=== PATIENT | male | born 1945 | race Caucasian/White ===

== ENCOUNTER 2018-03-07 00:23 | Emergency (ER) | payer MEDICARE, OTHER, SELFPAY ==
[2018-03-07 00:44] VITALS: BP 128/97; PULSE 96; RESP 17; TEMP 36.8; O2SAT 94
[2018-03-07] MEDS: ASPIRIN 81 MG TAB 324 MG PO (00:44)
--- NOTE | 2018-03-07 00:44 | DI.RAD.S_ITS ---
PROCEDURE: XR CHEST 1V INDICATIONS: chest pain, shortness of breath TECHNIQUE: One view of the chest was acquired. COMPARISON: [facility], CT, PE STUDY (CTA CHEST), 09/29/2015, 15:46. [facility], CR, CHEST 2 VIEW, 01/02/2017, 15:01. FINDINGS: Surgical changes and devices: Pulse generator projects over left hemithorax as before. Lungs and pleura: No pleural effusions or pneumothorax. Low lung volumes without acute consolidation. There are ill-defined subcentimeter nodular opacities projecting in the right lung base which are technically indeterminate although continued followup. Mediastinum: Mediastinal contours appear normal. Heart size is normal. Bones and chest wall: No suspicious bony lesions. Overlying soft tissues appear unremarkable. IMPRESSION: No acute consolidation. Ill-defined subcentimeter nodular opacities projecting in the right lung base which could represent early bronchopneumonia although cannot exclude pulmonary nodule. These appear new since 01/02/17. Recommend short interval one month radiographic followup after treatment and if persists noncontrast chest CT would be recommended to exclude pulmonary nodule. Dictated by: Hi Hdez M.D. on 03/07/2018 at 8:06 Approved by: Hi Hdez M.D. on 03/07/2018 at 8:09
[2018-03-07] MEDS: SODIUM CHLORIDE 0.9% 1,000 ML 150 ML IV (00:45)
--- NOTE | 2018-03-07 00:49 | ED.CHESTPAIN ---
HPI - Chest Pain General Chief Complaint: Chest Pain Stated Complaint: chest pain Time Seen by Provider: 03/07/18 00:30 Source: patient and family Mode of arrival: wheelchair Limitations: no limitations History of Present Illness HPI narrative: Patient presents to the emergency department in the company family with a chief complaint of chest pain and shortness of breath over the past few days. Shortness of breath is worse when lying flat and while exerting. Patient has had no fever or chills. He denies dizziness or lightheadedness. He denies any weight gain. He denies any cough. Patient denies provocation, palliation or radiation his chest pain. He is not currently having pain MD complaint: chest pain Onset (ago): day(s) Duration: intermittent and now resolved Pain location: left chest Severity: mild Pain radiation: none Relieving factors: nothing Exacerbating factors: nothing Associated symptoms: nausea and dyspnea Treatments prior to arrival chest pain: none Related Data Home Medications Medication Instructions Recorded Confirmed amitriptyline 75 - 150 mg PO HS #0 07/19/12 pregabalin [Lyrica] 150 mg PO TID #0 07/19/12 fentanyl 1 patch TOPICAL Q72H #0 08/28/16 folic acid 0.4 mg PO QDAY #0 08/28/16 glycopyrrolate 0.5 mg PO BID #0 08/28/16 [CALCIUM] 1 tab PO QDAY #0 10/24/17 carbidopa-levodopa [Rytary] 2 cap PO BID #0 10/24/17 carbidopa-levodopa [Rytary] 3 cap PO BID #0 10/24/17 cholecalciferol (vitamin D3) 2,000 unit PO QDAY #0 10/24/17 [Vitamin D3] furosemide 20 mg PO QDAY #0 10/24/17 lubiprostone [Amitiza] 8 mcg PO BID #0 10/24/17 naloxegol [Movantik] 12.5 mg PO QDAY #0 10/24/17 nystatin 1 mis TOPICAL BID #0 10/24/17 potassium chloride 20 meq PO QDAY #0 10/24/17 venlafaxine 2 tab PO QDAY #0 10/24/17 Previous Rx's Medication Instructions Recorded furosemide [Lasix] 40 mg PO DAILY #3 tab 03/07/18 Allergies Allergy/AdvReac Type Severity Reaction Status Date / Time adhesive [ADHESIVE] Allergy Severe BLISTERS Verified 03/07/18 00:44 chlorhexidine [CHLORHEXIDINE] Allergy Severe RASH Verified 03/07/18 00:44 latex [LATEX] Allergy Severe BLISTERS Verified 03/07/18 00:44 rubber Allergy Mild SKIN RED Uncoded 12/04/17 13:06 vinyl Allergy Unknown PT DENIES Uncoded 12/04/17 13:06 antiseptic soap AdvReac Mild SKIN RED Uncoded 12/04/17 13:06 AND IRRITATED Review of Systems Review of Systems All systems reviewed & are unremarkable except as noted in HPI and below Constitutional Denies chills, Denies fever(s), Denies lethargy and Denies weakness Eyes Denies change in vision, Denies eye discharge, Denies irritation and Denies loss of vision ENT Ears, Nose, Mouth, and Throat: Denies change in voice, Denies neck pain and Denies sore throat Cardiovascular Reports chest pain, Denies irregular heart rhythm, Denies lightheadedness, Denies palpitations, Reports dyspnea, Reports dyspnea on exertion and Reports orthopnea Respiratory Denies cough, Reports dyspnea, Reports dyspnea on exertion and Denies wheezing Gastrointestinal Gastrointestinal: Denies abdominal pain, Denies change in bowel habits, Denies diarrhea, Denies nausea and Denies vomiting Genitourinary Denies hematuria, Denies flank pain, Denies urinary incontinence and Denies urinary urgency Musculoskeletal Denies neck pain Integumentary/Breasts Denies pruritus, Denies erythema, Denies rash and Denies wounds Neurologic Denies confusion, Denies loss of vision and Denies weakness Psychiatric Denies anxiety, Denies confusion, Denies depression, Denies homicidal ideation and Denies suicidal ideation Endocrine Denies palpitations Hematologic/Lymphatic Denies easy bruising Allergic/Immunologic Denies wheezing Exam Narrative Exam Narrative: 72-year-old male in mild distress, short of breath Initial Vital Signs Initial Vital Signs: Vital Signs Temperature 98.2 F 03/07/18 00:44 Pulse Rate 96 H 03/07/18 00:44 Respiratory Rate 17 03/07/18 00:44 Blood Pressure 128/97 H 03/07/18 00:44 Pulse Oximetry 94 03/07/18 00:44 Const General: cooperative and well developed Nutritional Appearance: well nourished Orientation: alert, awake, oriented x3 and not confused [place] Head: normocephalic and atraumatic Ears: external ears normal and TM's normal bilaterally Nose: external nose normal and No nasal discharge Face and sinus: sinuses nontender, face symmetric, no sinus tenderness and No dry mucous membranes Mouth: oral mucosae normal and moist mucous membranes Teeth and gingiva: dentition normal Throat: tonsils normal and uvula midline Eyes General: appearance normal, both eyes and all related structures Eyelids: eyelids normal Conjunctivae: conjunctivae normal Sclera: sclerae normal Pupils: PERRL EOM: EOM intact bilaterally Neck Neck: normal visual inspection, trachea midline, No lymphadenopathy, No midline deformity and No JVD Lymphatic: No lymphedema Chest Chest: normal inspection of the chest Resp Effort & Inspection: normal respiratory effort, able to speak in complete sentences, no respiratory distress and no use of accessory muscles Auscultation: clear to auscultation bilaterally, crackles, rales, no rhonchi and no wheezes Cardio Rate: regular rate Rhythm: regular rhythm Heart Sounds: no click, no gallops, no murmurs and no rubs Pulses: normal peripheral pulses GI Inspection: non-distended Palpation: soft, no hepatosplenomegaly, No guarding, No pulsatile mass and No tender Auscultation: normal bowel sounds Back/Spine/Pelvis Back: No CVA tenderness Cervical Spine: cervical ROM normal and No pain with cervical ROM Thoracic/Lumbar Spine: thoracic and lumbar spine normal to inspection Skin General: no rashes or lesions noted, No jaundice and No petechiae Neuro General: alert, oriented x3, gait normal and no focal motor deficits Speech: speech normal Other: Mild resting tremor at baseline per family Extrem General: full ROM, no clubbing, cyanosis or edema, no pedal edema and no calf tenderness Psych Appearance: well kempt Mental Status: mental status grossly normal Attitude: cooperative Thought Content: normal and suicidality Judgment: judgment good Course Orders Ordered: Discontinued Medications Aspirin (Aspirin Chew) 324 mg PO NOW ONE Stop: 03/07/18 00:45 Last Admin: 03/07/18 00:44 Dose: 324 mg Furosemide (Lasix) 40 mg IV NOW ONE Stop: 03/07/18 03:04 Last Admin: 03/07/18 03:06 Dose: 40 mg Sodium Chloride (Normal Saline 0.9%) 1,000 mls @ 150 mls/hr IV CONT ENRIQUETA Last Admin: 03/07/18 00:45 Dose: 150 mls/hr Ondansetron HCl (Zofran) 4 mg IV Q4HR PRN PRN Reason: Nausea And Vomiting Last Admin: 03/07/18 01:06 Dose: 4 mg Oxycodone/Acetaminophen (Percocet 5/325) 2 tab PO NOW ONE Stop: 03/07/18 00:59 Last Admin: 03/07/18 01:06 Dose: 2 tab Vital Signs - 8 hr 03/07/18 00:44 Temperature 98.2 F Pulse Rate 96 H Respiratory Rate 17 Blood Pressure 128/97 H Pulse Oximetry 94 MDM - Chest Pain Lab Data Result diagrams: 03/07/18 00:56 03/07/18 00:56 Lab Results 03/07/18 03/07/18 03/07/18 Range/Units 00:56 00:56 Unknown WBC 5.9 (4.5-11.0) X10^3/uL RBC 5.13 (4.5-5.9) X10^6/uL Hgb 13.6 (13.5-17.5) g/dL Hct 41.9 (41-53) % MCV 81.7 (80-100) fL MCH 26.6 (26-34) PG MCHC 32.5 (30-36) % RDW 16.0 H (11.6-14.8) % Plt Count 166 (150-400) X10^3/uL Neut % (Auto) 59.7 (50-75) % Lymph % (Auto) 27.7 (25-40) % [place] % (Auto) 8.2 (3-14) % Eos % (Auto) 3.5 (2-4) % Baso % (Auto) 0.9 (0-2) % Neut # (Auto) 3500 (5073-0691) /uL Sodium 138 (137-145) mmol/L Potassium 4.2 (3.4-5.1) mmol/L Chloride 102 (98-107) mmol/L Carbon Dioxide 26 (22-32) mmol/L BUN 21 H (9-20) mg/dL Creatinine 0.80 (0.66-1.25) mg/dL Estimated GFR > 60.0 (>60) mL/min BUN/Creatinine Ratio 26.3 H (6-22) Glucose 102 (80-110) mg/dL Calcium 8.9 (8.4-10.2) mg/dL Total Bilirubin 0.7 (0.2-1.3) mg/dL AST 24 (17-59) IU/L ALT 11 L (21-72) IU/L Alkaline Phosphatase 111 (38-126) U/L Total Creatine Kinase 49 L (55-170) U/L CK-MB (CK-2) TNP Troponin I < 0.012 (0.01-0.034) ng/mL B-Natriuretic Peptide 131.0 H (<100) Total Protein 7.2 (6.3-8.2) g/dL Albumin 4.0 (3.5-5.0) g/dL Globulin 3.2 (1.7-4.1) g/dL Albumin/Globulin Ratio 1.3 (1.0-2.8) Lipase 70 (23-300) U/L Discharge Plan Departure Patient Disposition: Home, Self-Care Clinical Impression: CHF (congestive heart failure) Discharge Date/Time: 03/07/18 03:48 Interventions: ED Discharge Assessment Last Done: 03/07/18 03:48 Instructions: DI for Heart Failure Activity Restrictions/Additional Instructions: *You have been diagnosed with [ acute congestive heart failure, mild ] *What to do: *Take medications as directed. Your prescription has been electronically [facility] to [facility] at your request Limit your fluid intake to 1800 mL daily *Follow up with your primary care provider in 2-3 days [and follow up with ortho, urology etc] *Return to ER if you should have [such as] [or] any new, worsening or concerning symptoms Prescriptions: New furosemide [Lasix] 40 mg tablet 40 mg PO DAILY Qty: 3 RF: 0 No Action amitriptyline 75 MG tablet 75 - 150 mg PO HS Qty: 0 RF: 0 pregabalin [Lyrica] 150 MG capsule 150 mg PO TID Qty: 0 RF: 0 glycopyrrolate 1 MG tablet 0.5 mg PO BID Qty: 0 RF: 0 fentanyl 50 MCG/HR patch 72 hour 1 patch Topical Q72H Qty: 0 RF: 0 folic acid 0.4 MG tablet 0.4 mg PO QDAY Qty: 0 RF: 0 lubiprostone [Amitiza] 8 MCG capsule 8 mcg PO BID Qty: 0 RF: 0 [CALCIUM] 1 tab PO QDAY Qty: 0 RF: 0 furosemide 20 MG tablet 20 mg PO QDAY Qty: 0 RF: 0 naloxegol [Movantik] 25 MG tablet 12.5 mg PO QDAY Qty: 0 RF: 0 potassium chloride 20 MEQ tablet,ER particles/crystals 20 meq PO QDAY Qty: 0 RF: 0 nystatin 15 GM cream 1 mis Topical BID Qty: 0 RF: 0 carbidopa-levodopa [Rytary] 48.75 MG/195 MG capsule, extended release 2 cap PO BID Qty: 0 RF: 0 carbidopa-levodopa [Rytary] 48.75 MG/195 MG capsule, extended release 3 cap PO BID Qty: 0 RF: 0 venlafaxine 75 MG tablet extended release 24hr 2 tab PO QDAY Qty: 0 RF: 0 cholecalciferol (vitamin D3) [Vitamin D3] 2,000 UNIT capsule 2,000 unit PO QDAY Qty: 0 RF: 0
[2018-03-07 01:00] LABS: Add Manual Diff / Slide Review NO; Basophils Percent Auto 0.9 % (0-2); Eosinophils Percent Auto 3.5 % (2-4); Hematocrit 41.9 % (41-53); Hemoglobin 13.6 g/dL (13.5-17.5); Lymphocytes Percent Auto 27.7 % (25-40); Mean Corpuscular HGB Conc 32.5 % (30-36); Mean Corpuscular Hemoglobin 26.6 PG (26-34); Mean Corpuscular Volume 81.7 fL (80-100); Monocytes Percent Auto 8.2 % (3-14); Neutrophils Absolute Auto 3500 /uL (3000-5900); Neutrophils Percent Auto 59.7 % (50-75); Platelet Count 166 X10^3/uL (150-400); Red Blood Cell Count 5.13 X10^6/uL (4.5-5.9); White Blood Cell Count 5.9 X10^3/uL (4.5-11.0)
[2018-03-07] MEDS: OXYCODONE/ACETAMINOPHEN 5/325 TABLET 2 TAB PO (01:06)
[2018-03-07] MEDS: ONDANSETRON 4 MG/2 ML INJ IV (01:06)
[2018-03-07 01:15] LABS: Alanine Aminotransferase 11 IU/L (21-72); Albumin Globulin Ratio 1.3 (1.0-2.8); Alkaline Phosphatase 111 U/L (38-126); Aspartate Aminotransferase 24 IU/L (17-59); BUN Creatinine Ratio 26.3 (6-22); Bilirubin Total 0.7 mg/dL (0.2-1.3); Blood Urea Nitrogen 21 mg/dL (9-20); Calcium 8.9 mg/dL (8.4-10.2); Carbon Dioxide 26 mmol/L (22-32); Chloride 102 mmol/L (98-107); Creatine Kinase 49 U/L (55-170); Estimated Glomerular Filt Rate > 60.0 mL/min (>60); Globulin 3.2 g/dL (1.7-4.1); Glucose 102 mg/dL (80-110); HEMOLYSIS 25 (0-50); Lipase 70 U/L (23-300); Potassium 4.2 mmol/L (3.4-5.1); Sodium 138 mmol/L (137-145); Total Protein 7.2 g/dL (6.3-8.2)
[2018-03-07 01:26] LABS: Troponin I < 0.012 ng/mL (0.01-0.034)
[2018-03-07 01:32] VITALS: BP 128/97; PULSE 96; RESP 17; TEMP 36.8; O2SAT 94
[2018-03-07 02:13] VITALS: BP 124/70; PULSE 86; RESP 16; O2SAT 92
[2018-03-07 03:01] VITALS: BP 119/83; PULSE 91; RESP 20; O2SAT 93
[2018-03-07] MEDS: FUROSEMIDE 40 MG/4 ML VIAL IV (03:06)
== END 2018-03-07 03:48 | disposition home or self-care (01) ==
PROVIDERS: Emergency Provider Emergency Medicine; Family Provider Internal Medicine; PCP Internal Medicine
DX: I50.9 Heart failure, unspecified (principal)
CPT/HCPCS: 36591; 71045; 80053; 82550; 82553; 83690; 83880; 84484; 85025; 93005; 96374; 96375; 99283; 99284; J1940; J2405

== ENCOUNTER → 2018-03-18 19:32 | Outpatient (REF) | payer MEDICARE, OTHER, SELFPAY | LOC: LAB 19:32 | PROVIDERS: Family Provider Internal Medicine; PCP Internal Medicine; Visit Provider Internal Medicine | DX: N39.0 Urinary tract infection, site not specified (principal) | CPT/HCPCS: 87077; 87086; 87186 ==

== ENCOUNTER → 2018-04-08 14:38 | Outpatient (REF) | payer MEDICARE, OTHER, SELFPAY | LOC: LAB 14:38 | PROVIDERS: Family Provider Internal Medicine; PCP Internal Medicine; Visit Provider Internal Medicine | DX: N39.0 Urinary tract infection, site not specified (principal) | CPT/HCPCS: 87077; 87086; 87186 ==

== ENCOUNTER → 2018-08-16 12:22 | Outpatient (CLI) | payer MEDICARE, OTHER, SELFPAY ==
[2018-08-16 12:30] LABS: RBC Urine None Seen (0-5/HPF)
[2018-08-16 13:11] LABS: Appearance Urine UA CLEAR; Bilirubin Urine UA NEGATIVE (NEGATIVE); Color Urine UA YELLOW; Glucose Urine UA NEGATIVE (Normal); Ketones Urine UA NEGATIVE (NEGATIVE); Leukocyte Esterase Urine UA NEGATIVE (NEGATIVE); Nitrite Urine UA POSITIVE (Negative); Occult Blood Urine UA NEGATIVE (Negative); Protein Urine UA NEGATIVE (Negative); Urobilinogen Urine UA 0.2 E.U./dL (0.2)
[2018-08-16 13:56] LABS: Bacteria Urine Many (>30); Culture Indicated Urine Specimen Cultured; Squamous Epithelial Cell Urine None Seen; WBC Urine 0-1/HPF (0-5/HPF)
== END ==
PROVIDERS: PCP Internal Medicine; Visit Provider Internal Medicine
DX: N39.0 Urinary tract infection, site not specified (principal)
CPT/HCPCS: 81001; 87077; 87086; 87186

== ENCOUNTER 2018-09-17 15:44 | Emergency (ER) | payer MEDICARE, OTHER, SELFPAY ==
[2018-09-17 15:49] VITALS: BP 146/72; PULSE 71; RESP 22; TEMP 36.9; O2SAT 99
--- NOTE | 2018-09-17 16:35 | DI.RAD.S_ITS ---
PROCEDURE: XR FEMUR RT MIN 2V INDICATIONS: fall/trauma/pain TECHNIQUE: 2 views of the femur were acquired. COMPARISON: None. FINDINGS: Bones: No fractures or dislocations. No suspicious bony lesions. Right knee arthroplasty. Soft tissues: No suspicious soft tissue calcifications or masses. IMPRESSION: No acute fracture. No osseous lesion. If symptoms and/or clinical suspicion for pathology persist, further assessment with repeat, or advanced imaging (e.g., CT, MRI, or bone scan) may be helpful for further assessment. Dictated by: Madhu Harris M.D. on 09/17/2018 at 17:03 Approved by: Madhu Harris M.D. on 09/17/2018 at 17:03
--- NOTE | 2018-09-17 16:36 | DI.CT.S_ITS ---
PROCEDURE: CT LUMBAR SPINE WO CON INDICATIONS: fall/trauma/pain TECHNIQUE: Noncontrast 3 mm thick sections acquired from the T12 level to the sacrum. Sagittal and coronal reformats were constructed. For radiation dose reduction, the following was used: automated exposure control. COMPARISON: None. FINDINGS: Image quality: Excellent. Bones: There is normal bony alignment. No acute vertebral body compression fractures. No suspicious lytic or blastic bony lesions. Central spinal caliber is of normal overall caliber. No pars defects. Multilevel disc space narrowing and endplate osteophyte formation. Mild multilevel canal stenoses. Multilevel foraminal stenoses, worst at L5-S1 bilaterally, where there is severe bilateral foraminal stenosis with intraforaminal L5 nerve root flattening. Soft tissues: No retroperitoneal masses or hematomas. Visualized aorta is normal in caliber. IMPRESSION: 1. No fracture. 2. Multilevel degenerative disc and facet disease. 3. Severe bilateral L5-S1 foraminal stenoses with intraforaminal L5 nerve root flattening bilaterally. Dictated by: Madhu Harris M.D. on 09/17/2018 at 17:12 Approved by: Madhu Harris M.D. on 09/17/2018 at 17:17
--- NOTE | 2018-09-17 16:42 | ED_ITS ---
HPI - Fall General Chief Complaint: Fall Stated Complaint: rolled w/c. fell out of w/c R knee and r chest flakito Time Seen by Provider: 09/17/18 16:15 Source: patient and family Mode of arrival: ambulatory Limitations: no limitations History of Present Illness HPI Narrative: Patient was in his wheelchair when he somehow tipped over to the left and fell to the ground. The wheelchair also tipped over and rolled on top of him. Patient states that he did not hit his head or lose consciousness. He states his main injuries were his lower back and his right distal thigh. Patient has a history of Parkinson's disease, which is why he is in a wheelchair. Patient has not been ill with anything recently. He denies any other injuries. No other complaints at this time. Related Data Home Medications Medication Instructions Recorded Confirmed pregabalin [Lyrica] 150 mg PO TID #0 07/19/12 09/17/18 fentanyl 1 patch TOPICAL Q72H #0 08/28/16 09/17/18 folic acid 0.4 mg PO 1300 #0 08/28/16 09/17/18 cholecalciferol (vitamin D3) 2,000 unit PO 1300 #0 10/24/17 09/17/18 [Vitamin D3] naloxegol [Movantik] 25 mg PO 0900 #0 10/24/17 09/17/18 nystatin 1 mis TOPICAL BID #0 10/24/17 09/17/18 potassium chloride 20 meq PO 0900 #0 10/24/17 09/17/18 venlafaxine 225 mg PO 0900 #0 10/24/17 09/17/18 magnesium 250 mg tablet 250 mg PO QID tab 04/29/18 09/17/18 melatonin 5 mg tablet 5 mg PO 2100 04/29/18 09/17/18 omeprazole 20 mg capsule,delayed 20 mg PO BID cap 04/29/18 09/17/18 release oxycodone 10 mg tablet 10 mg PO Q4-6H PRN 04/29/18 09/17/18 pramipexole ER 0.75 mg 0.75 mg PO TID 21 Days #84 tab 04/29/18 09/17/18 tablet,extended release 24 hr ranitidine 150 mg tablet 150 mg PO BID tab 04/29/18 09/17/18 rivastigmine 6 mg capsule 6 mg PO BID 04/29/18 09/17/18 amitriptyline 150 mg PO 2100 09/17/18 09/17/18 carbidopa-levodopa [Rytary] 2 cap PO BID 09/17/18 09/17/18 carbidopa-levodopa [Rytary] 3 cap PO BID 09/17/18 09/17/18 cyanocobalamin (vitamin B-12) 1,000 mcg PO 1300 09/17/18 09/17/18 [Vitamin B-12] furosemide [Lasix] 40 mg PO 0900 09/17/18 09/17/18 Allergies Allergy/AdvReac Type Severity Reaction Status Date / Time adhesive [ADHESIVE] Allergy Severe BLISTERS Verified 04/29/18 08:40 chlorhexidine [CHLORHEXIDINE] Allergy Severe RASH Verified 04/29/18 08:40 latex [LATEX] Allergy Severe BLISTERS Verified 04/29/18 08:40 rubber Allergy Mild SKIN RED Uncoded 04/29/18 08:40 vinyl Allergy Unknown PT DENIES Uncoded 04/29/18 08:40 antiseptic soap AdvReac Mild SKIN RED Uncoded 04/29/18 08:40 AND IRRITATED Review of Systems Constitutional Denies chills, Denies fever(s), Denies lethargy and Denies weakness Eyes Denies change in vision, Denies eye discharge, Denies irritation and Denies loss of vision ENT Ears, Nose, Mouth, and Throat: Denies change in voice, Denies neck pain and Denies sore throat Cardiovascular Denies chest pain, Denies irregular heart rhythm, Denies lightheadedness, Denies palpitations, Denies dyspnea, Denies dyspnea on exertion and Denies orthopnea Respiratory Denies cough, Denies dyspnea, Denies dyspnea on exertion and Denies wheezing Gastrointestinal Gastrointestinal: Denies abdominal pain, Denies change in bowel habits, Denies diarrhea, Denies nausea and Denies vomiting Genitourinary Denies hematuria, Denies flank pain, Denies urinary incontinence and Denies urinary urgency Musculoskeletal Denies neck pain Integumentary/Breasts Denies pruritus, Denies erythema, Denies rash and Denies wounds Neurologic Denies confusion, Denies loss of vision and Denies weakness Psychiatric Denies anxiety, Denies confusion, Denies depression, Denies homicidal ideation and Denies suicidal ideation Endocrine Denies palpitations Hematologic/Lymphatic Denies easy bruising Allergic/Immunologic Denies wheezing Exam Initial Vital Signs Initial Vital Signs: Vital Signs Temperature 98.5 F 09/17/18 15:49 Pulse Rate 71 09/17/18 15:49 Respiratory Rate 22 09/17/18 15:49 Blood Pressure 146/72 H 09/17/18 15:49 Pulse Oximetry 99 09/17/18 15:49 Const General: cooperative and well developed Nutritional Appearance: well nourished Orientation: alert, awake, oriented x3 and not confused Other: Patient is morbidly obese. [facility] Head: normocephalic and atraumatic Ears: external ears normal Nose: external nose normal and No nasal discharge Face and sinus: face symmetric and No dry mucous membranes Mouth: oral mucosae normal and moist mucous membranes Teeth and gingiva: dentition normal Throat: tonsils normal and uvula midline Eyes General: appearance normal, both eyes and all related structures Eyelids: eyelids normal Conjunctivae: conjunctivae normal Sclera: sclerae normal Pupils: PERRL EOM: EOM intact bilaterally Neck Neck: normal visual inspection, trachea midline, No lymphadenopathy, No midline deformity and No JVD Lymphatic: No lymphedema Chest Chest: normal inspection of the chest Resp Effort & Inspection: normal respiratory effort, able to speak in complete sentences, no respiratory distress and no use of accessory muscles Auscultation: clear to auscultation bilaterally, no rales, no rhonchi and no wheezes Cardio Rate: regular rate Rhythm: regular rhythm Heart Sounds: no click, no gallops, no murmurs and no rubs Pulses: normal peripheral pulses GI Inspection: non-distended Palpation: soft, no hepatosplenomegaly, No guarding, No pulsatile mass and No tender Back/Spine/Pelvis Cervical Spine: cervical ROM normal and No pain with cervical ROM Other: Patient has tenderness over his the mid lumbar spine pain with palpation. He also has tenderness over his lumbar paraspinal areas. No step- off. No tenderness at any other level of the spine. Skin General: no rashes or lesions noted, No jaundice and No petechiae Neuro General: alert, oriented x3, gait normal and no focal motor deficits Speech: speech normal Extrem General: full ROM, no clubbing, cyanosis or edema, no pedal edema and no calf tenderness Psych Appearance: well kempt Mental Status: mental status grossly normal Attitude: cooperative Thought Content: normal and suicidality Judgment: judgment good [facility] Medical History Major depressive disorder, recurrent, moderate (Acute) Demoralization (Acute) Bilateral lower extremity edema (Acute) Elevated blood pressure (Acute) Urinary tract infection (Acute) Generalized weakness (Acute) Dependent edema (Acute) Cellulitis of great toe, right (Acute) Knee effusion, right (Acute) Light headedness (Acute) Parkinson disease (Chronic) Social History Smoking Status: Never smoker Course Course Narrative: Patient was worked up with an x-ray of his right femur, as well as a CT scan of his lumbar spine. Both of these were negative. Patient declined pain medication in the emergency department, though his family did ultimately give him his usual doses of evening medication. He felt the patient was stable for discharge home. We have discussed the usual indications for return, as well as home management of the symptoms. The daughter states the patient is on a pain contract with his chronic pain specialist, and that if he is in need of further pain medicine, they will work with the pain specialist. Orders Ordered: ED Orders 09/17/18 16:35 XR femur RT min 2V Stat 09/17/18 16:36 CT lumbar spine wo con Stat Vital Signs - 8 hr 09/17/18 15:49 09/17/18 18:18 Temperature 98.5 F Pulse Rate 71 90 Respiratory Rate 22 22 Blood Pressure 146/72 H 139/82 Pulse Oximetry 99 95 MDM - Fall Medical Records Attestation: I reviewed the patient's medical records. Imaging Data Right femur x-ray: Attestation: I personally reviewed and interpreted this imaging study as follows: My impression: Negative Radiologist's impression: [address] [address] XRay Report Signed Patient: Matthias Vance [facility]#: [id number] : 6Acct:[id number] Age/Sex: 73 / MDate of Service: 09/17/18 Loc: ED Accession Number: [id number] Procedure: XR femur RT min 2V Ordering Provider: Shannon Hill MD PROCEDURE: XR FEMUR RT MIN 2V INDICATIONS: fall/trauma/pain TECHNIQUE: 2 views of the femur were acquired. COMPARISON: None. FINDINGS: Bones: No fractures or dislocations. No suspicious bony lesions. Right knee arthroplasty. Soft tissues: No suspicious soft tissue calcifications or masses. IMPRESSION: No acute fracture. No osseous lesion. If symptoms and/or clinical suspicion for pathology persist, further assessment with repeat, or advanced imaging (e.g. , CT, MRI, or bone scan) may be helpful for further assessment. Dictated by: Madhu Harris M.D. on 09/17/2018 at 17:03 Approved by: Madhu Harris M.D. on 09/17/2018 at 17:[address]: Radiologist's impression: PROCEDURE: CT LUMBAR SPINE WO CON INDICATIONS: fall/trauma/pain TECHNIQUE: Noncontrast 3 mm thick sections acquired from the T12 level to the sacrum. Sagittal and coronal reformats were constructed. For radiation dose reduction, the following was used: automated exposure control. COMPARISON: None. FINDINGS: Image quality: Excellent. Bones: There is normal bony alignment. No acute vertebral body compression fractures. No suspicious lytic or blastic bony lesions. Central spinal caliber is of normal overall caliber. No pars defects. Multilevel disc space narrowing and endplate osteophyte formation. Mild multilevel canal stenoses. Multilevel foraminal stenoses, worst at L5-S1 bilaterally, where there is severe bilateral foraminal stenosis with intraforaminal L5 nerve root flattening. Soft tissues: No retroperitoneal masses or hematomas. Visualized aorta is normal in caliber. IMPRESSION: 1. No fracture. 2. Multilevel degenerative disc and facet disease. 3. Severe bilateral L5-S1 foraminal stenoses with intraforaminal L5 nerve root flattening bilaterally. Dictated by: Madhu Harris M.D. on 09/17/2018 at 17:12 Approved by: Madhu Harris M.D. on 09/17/2018 at 17:17 Discharge Plan Departure Patient Disposition: Home Clinical Impression: Contusion, Lumbar strain, Arthritis Discharge Date/Time: 09/17/18 18:17 Interventions: ED Discharge Assessment Last Done: 09/17/18 18:18 Instructions: DI for Contusion, DI for Back Strain or Sprain Activity Restrictions/Additional Instructions: Your x-ray and CT scan looked good--no evidence of a fracture or other abnormality acutely. You do have findings consistent with chronic arthritis on your CT scan. Please follow up with your primary doctor, as needed. Prescriptions: No Action rivastigmine tartrate 6 mg capsule 6 mg PO BID RF: 0 melatonin 5 mg tablet 5 mg PO 2100 RF: 0 ranitidine HCl 150 mg tablet 150 mg PO BID RF: 0 omeprazole 20 mg capsule,delayed release(DR/EC) 20 mg PO BID RF: 0 oxycodone 10 mg tablet 10 mg PO Q4-6H PRN (Reason: Breakthrough Pain) RF: 0 magnesium 250 mg tablet 250 mg PO QID RF: 0 pramipexole 0.75 mg tablet extended release 24 hr 0.75 mg PO TID 21 Days Qty: 84 RF: 0 pregabalin [Lyrica] 150 MG capsule 150 mg PO TID Qty: 0 RF: 0 fentanyl 50 MCG/HR patch 72 hour 1 patch Topical Q72H Qty: 0 RF: 0 folic acid 0.4 MG tablet 0.4 mg PO 1300 Qty: 0 RF: 0 naloxegol [Movantik] 25 MG tablet 25 mg PO 0900 Qty: 0 RF: 0 potassium chloride 20 MEQ tablet,ER particles/crystals 20 meq PO 0900 Qty: 0 RF: 0 nystatin 15 GM cream 1 mis Topical BID Qty: 0 RF: 0 venlafaxine 75 MG tablet extended release 24hr 225 mg PO 0900 Qty: 0 RF: 0 cholecalciferol (vitamin D3) [Vitamin D3] 2,000 UNIT capsule 2,000 unit PO 1300 Qty: 0 RF: 0 amitriptyline 75 mg tablet 150 mg PO 2100 RF: 0 carbidopa-levodopa [Rytary] 48.75-195 mg capsule, extended release 3 cap PO BID RF: 0 carbidopa-levodopa [Rytary] 48.75-195 mg capsule, extended release 2 cap PO BID RF: 0 cyanocobalamin (vitamin B-12) [Vitamin B-12] 1,000 mcg Tablet Extended Release 1,000 mcg PO 1300 RF: 0 furosemide [Lasix] 40 mg tablet 40 mg PO 0900 RF: 0 Referrals: Darian Alonso MD [Primary Care Provider] -
[2018-09-17 18:18] VITALS: BP 139/82; PULSE 90; RESP 22; O2SAT 95
== END 2018-09-17 18:17 | disposition home or self-care (01) ==
PROVIDERS: Emergency Provider Emergency Medicine; Family Provider Internal Medicine; PCP Internal Medicine
DX: S39.012A Strain of muscle, fascia and tendon of lower back, initial encounter (principal); S80.01XA Contusion of right knee, initial encounter; M19.90 Unspecified osteoarthritis, unspecified site; W05.0XXA Fall from non-moving wheelchair, initial encounter
CPT/HCPCS: 72131; 73552; 99282; 99284

== ENCOUNTER → 2018-09-26 12:33 | Outpatient (CLI) | payer MEDICARE, OTHER, SELFPAY ==
--- NOTE | 2018-09-26 | DI.RAD.S_ITS ---
PROCEDURE: XR CHEST 2V INDICATIONS: COUGH TECHNIQUE: 2 views of the chest were acquired. COMPARISON: [facility], , XR CHEST 1V, 03/07/2018, 1:13. FINDINGS: Surgical changes and devices: Epidural neurostimulator is noted projected over the left chest. Lungs and pleura: Lungs are clear. No pleural effusions or pneumothorax. Mediastinum: Mediastinal contours are normal. Heart size is normal. Bones and chest wall: No suspicious bony abnormalities. Soft tissues appear unremarkable. IMPRESSION: No acute cardiopulmonary findings. Dictated by: Analilia Grullon M.D. on 09/26/2018 at 13:37 Approved by: Analilia Grullon M.D. on 09/26/2018 at 13:38
[2018-09-26 13:30] LABS: Add Manual Diff / Slide Review NO; Basophils Absolute Auto 100 /uL (0-100); Eosinophils Absolute Auto 400 /uL (0-450); Eosinophils Percent Auto 6.1 % (2-4); Hematocrit 43.7 % (41-53); Hemoglobin 13.9 g/dL (13.5-17.5); Lymphocytes Absolute Auto 1000 /uL (1100-4500); Lymphocytes Percent Auto 18.1 % (25-40); Mean Corpuscular HGB Conc 31.9 % (30-36); Mean Corpuscular Hemoglobin 26.3 PG (26-34); Mean Corpuscular Volume 82.3 fL (80-100); Monocytes Absolute Auto 600 /uL (0-900); Monocytes Percent Auto 9.9 % (3-14); Neutrophils Absolute Auto 3700 /uL (1500-7000); Neutrophils Percent Auto 64.9 % (50-75); Platelet Count 158 X10^3/uL (150-400); Red Blood Cell Count 5.31 X10^6/uL (4.5-5.9); Red Cell Distribution Width 16.7 % (11.6-14.8); White Blood Cell Count 5.7 X10^3/uL (4.5-11.0)
[2018-09-26 13:59] LABS: B Type Natriuretic Peptide < 100 (<100)
[2018-09-26 14:27] LABS: BUN Creatinine Ratio 24.4 (6-22); Blood Urea Nitrogen 22 mg/dL (9-20); Calcium 8.9 mg/dL (8.4-10.2); Carbon Dioxide 30 mmol/L (22-32); Chloride 100 mmol/L (98-107); Estimated Glomerular Filt Rate > 60.0 mL/min (>60); Glucose 105 mg/dL (80-110); HEMOLYSIS < 15 (0-50); Potassium 4.3 mmol/L (3.4-5.1); Sodium 140 mmol/L (137-145)
== END ==
PROVIDERS: PCP Internal Medicine; Visit Provider Internal Medicine
DX: R05 Cough (principal); R06.00 Dyspnea, unspecified
CPT/HCPCS: 36415; 71046; 80048; 83880; 85025

== ENCOUNTER 2019-04-15 02:28 | Observation (INO) | payer MEDICARE, OTHER, MEDICAID, SELFPAY ==
--- NOTE | 2019-04-15 02:34 | ED.GENADULT ---
HPI - General Adult General Chief complaint: Unresponsive Stated complaint: Unresponsive Time Seen by Provider: 04/15/19 02:33 Source: patient, family and EMS Mode of arrival: EMS Limitations: no limitations History of Present Illness HPI narrative: Patient is a 73-year-old male. Was brought in by EMS. The initial call for EMS was a CPR in progress however EMS reports that no chest compressions were administered. When they arrived patient was unresponsive. He does have a history of CHF and Parkinson's disease. He is a DNR/DNI with comfort measures only. They did place the patient on a CPAP and after that modality patient did seem to become more responsive per EMS. His blood sugar was greater than 90 per EMS. They stated that he was able to shake his head yes and no and squeeze hands. At baseline is reported the patient is nonverbal. Patient arrived on CPAP. Related Data Home Medications Medication Instructions Recorded Confirmed pregabalin [Lyrica] 150 mg PO TID #0 07/19/12 12/26/18 fentanyl 1 patch TOPICAL Q72H #0 08/28/16 12/26/18 folic acid 0.4 mg PO 1300 #0 08/28/16 12/26/18 cholecalciferol (vitamin D3) 2,000 unit PO 1300 #0 10/24/17 12/26/18 [Vitamin D3] naloxegol [Movantik] 25 mg PO 0900 #0 10/24/17 12/26/18 nystatin 1 mis TOPICAL BID #0 10/24/17 12/26/18 potassium chloride 20 meq PO 0900 #0 10/24/17 12/26/18 magnesium 250 mg tablet 250 mg PO QID tab 04/29/18 12/26/18 melatonin 5 mg tablet 5 mg PO 2100 04/29/18 12/26/18 omeprazole 20 mg capsule,delayed 20 mg PO BID cap 04/29/18 12/26/18 release oxycodone 10 mg tablet 10 mg PO Q4-6H PRN 04/29/18 12/26/18 pramipexole ER 0.75 mg 0.75 mg PO TID 21 Days #84 tab 04/29/18 12/26/18 tablet,extended release 24 hr ranitidine 150 mg tablet 150 mg PO BID tab 04/29/18 12/26/18 rivastigmine 6 mg capsule 6 mg PO BID 04/29/18 12/26/18 carbidopa-levodopa [Rytary] 2 cap PO BID 09/17/18 12/26/18 carbidopa-levodopa [Rytary] 3 cap PO BID 09/17/18 12/26/18 cyanocobalamin (vitamin B-12) 1,000 mcg PO 1300 09/17/18 12/26/18 [Vitamin B-12] furosemide [Lasix] 40 mg PO 0900 09/17/18 12/26/18 Previous Rx's Medication Instructions Recorded venlafaxine ER 75 mg 225 mg PO 0900 #90 tab 02/11/19 tablet,extended release 24 hr buspirone 5 mg tablet 5 mg PO TID #90 tab 03/18/19 amitriptyline 75 mg tablet 150 mg PO BEDTIME #60 tab 04/02/19 Allergies Allergy/AdvReac Type Severity Reaction Status Date / Time adhesive [ADHESIVE] Allergy Severe BLISTERS Verified 10/31/18 13:05 chlorhexidine [CHLORHEXIDINE] Allergy Severe RASH Verified 10/31/18 13:05 latex [LATEX] Allergy Severe BLISTERS Verified 10/31/18 13:05 rubber Allergy Mild SKIN RED Uncoded 10/31/18 13:05 vinyl Allergy Unknown PT DENIES Uncoded 10/31/18 13:05 antiseptic soap AdvReac Mild SKIN RED Uncoded 10/31/18 13:05 AND IRRITATED Review of Systems Review of Systems Provided by patient and family in EMS Constitutional Denies headache(s) ENT Ears, Nose, Mouth, and Throat: Denies headache(s) Cardiovascular Denies chest pain and Reports dyspnea Respiratory Reports dyspnea Comments: Coarse breath sounds Gastrointestinal Gastrointestinal: Denies abdominal pain Integumentary/Breasts Denies rash Neurologic Denies headache(s) Comments: Unresponsive [facility] Medical History Major depressive disorder, recurrent, moderate (Acute) Demoralization (Acute) Bilateral lower extremity edema (Acute) Elevated blood pressure (Acute) Urinary tract infection (Acute) Generalized weakness (Acute) Dependent edema (Acute) Cellulitis of great toe, right (Acute) Knee effusion, right (Acute) Light headedness (Acute) Parkinson disease (Chronic) Social History Smoking Status: Never smoker Social History Smoking Status: Never smoker Exam Initial Vital Signs Initial Vital Signs: Vital Signs Temperature 97.6 F 04/15/19 02:35 Pulse Rate 86 04/15/19 02:35 Respiratory Rate 20 04/15/19 02:35 Blood Pressure 152/78 H 04/15/19 02:35 Pulse Oximetry 92 04/15/19 02:35 Const General: No acute distress Orientation: alert and awake HENMT Head: normal to inspection and normocephalic Resp Effort & Inspection: labored and tachypneic Auscultation: crackles Cardio Rate: regular rate Rhythm: regular rhythm GI Inspection: non-distended Palpation: soft Skin Lesions: no lesions Rashes: no rashes Neuro General: alert and awake Extrem General: normal to inspection and capillary refill normal Psych Appearance: grossly normal and well kempt Scores GCS Perla coma scale eye opening: Spontaneous [place] coma scale verbal response: Orientated [place] coma scale motor response: Obey commands [place] coma scale total score: 15 Course Vital Signs - 8 hr 04/15/19 02:35 04/15/19 02:46 04/15/19 03:02 Temperature 97.6 F Pulse Rate 86 87 81 Respiratory Rate 20 28 H Blood Pressure 152/78 H Blood Pressure [Right Arm] 121/74 Pulse Oximetry 92 88 L 04/15/19 03:14 Temperature 97.6 F Pulse Rate 81 Respiratory Rate 28 H Blood Pressure 152/78 H Blood Pressure [Right Arm] Pulse Oximetry 88 L Medical Decision Making [facility] Narrative Medical decision making narrative: Upon arrival patient was responsive. He was able to shake his head yes and no. He was able to squeeze my hands. Was able to wiggle his toes. He did indicate through these modalities that he was not in any discomfort. He does have paperwork with him shows DNR/DNI with comfort measures only. After the patient's daughter and arrived we had a discussion between the for of us regarding his options. Informed him that we could continue with the CPAP and obtain blood work and chest x-rays and there would be a chance that he would respond to these modalities. I do suspect that his unresponsiveness was secondary to a respiratory issue. Also informed him that we could admit him to the hospital with the CPAP without doing any blood work or x-rays however this would make things difficult about whether not he was improving without being able to check his blood work. We also discussed the option of removing the CPAP mask and allowing nature to take its course. Acknowledging the fact that this could lead to his . After this discussion the patient made it very clear to myself that he would like me to remove the mask and not do any blood work not do any x-rays. The patient's and daughter agreed that this is with the patient would want. The CPAP mask was removed. He was agreeable to medications through the IV to make him comfortable. I did discuss the case with MARYANN Dubon the night hospitalist who will admit the patient for comfort measures. The patient and the family do understand that without intervention here in the emergency department there is the potential that he could recover from this event or progress to . They all expressed understanding and agreement this plan. Discharge Plan Departure Patient Disposition: Admitted As Inpatient Clinical Impression: Acute respiratory distress, Hypoxia, Parkinson disease CHF (congestive heart failure) Qualifiers: Heart failure type: unspecified Heart failure chronicity: unspecified Qualified Code(s): I50.9 - Heart failure, unspecified Admit Date/Time: 04/15/19 02:52 Admit Provider: Nasim Dubon
[2019-04-15 02:35] VITALS: BP 152/78; PULSE 86; RESP 20; TEMP 36.4; O2SAT 92
[2019-04-15 02:46] VITALS: PULSE 87; O2SAT 100
[2019-04-15 02:49] VITALS: RESP 12
[2019-04-15 03:02] VITALS: BP 121/74; PULSE 81; RESP 28; O2SAT 88
--- NOTE | 2019-04-15 03:02 | PC.NURSE ---
PT reports pt less responsive than normal, noticed at 0100 when she went to give him medication. Pt arrived on Cpap then placed on Bipap until family arrived and then placed on RA with o2 sat of 86%, per pt and family request. Pt has Parkinson's and at baseline does not verbally respond. PT is alert with GCS of 15 and able to respond by nodding head and squeezing Dr. Orellana's hand to answer questions. Pt and family requesting comfort measures.
[2019-04-15 03:14] VITALS: BP 152/78; PULSE 81; RESP 28; TEMP 36.4; O2SAT 88
--- NOTE | 2019-04-15 03:30 | PM.HP.1 ---
History of Present Illness Date Patient Seen: 04/15/19 Time Patient Seen: 03:10 Chief complaint: Unresponsive Narrative: Mr. Matthias Vance is a 73-year-old male patient with history significant for Parkinson's disease, major depression, congestive heart failure, hypertension, generalized weakness who presents to the ER with altered mental status and respiratory distress. The patient is nonverbal at baseline and is somnolent therefore much of the information is obtained from the patient's . The patient's reports finding the patient unresponsive and gurgling at 1:00 a.m. when she typically gives him medication. EMS was summoned and the patient is a DNR DNI and paramedics started patient on CPAP. The patient has been living at home with his is primary caregiver and 3 hours of assistance daily. She states the patient has been in deteriorating health for the last month with increasing weakness debility. She states he has been eating and drinking less and coughs when eating or drinking. The patient response to verbal stimulus and nausea says yesterday now and will follow commands to squeeze hands and release. He confirms he has no pain and wishes comfort care only, no lab studies, no interventions. Per his he has had no recent illness fevers or chills only progression of his Parkinson's disease. He has had progressive shortness of breath. He has reported chest pain, no abdominal pain and has had no vomiting. At baseline he has constipation but his head daily soft stools the last week described as mushy. The patient is fully dependent for all activities of daily living. As a family they have been discussing hospice care but no decision had been made. On upon arrival in the ER the patient is on CPAP per EMS and is afebrile with a temperature 97.6?, heart rate of 86, blood pressure 152/78, respirations of 20 saturating 92% on room air. Patient was subsequently transferred over to the ER CPAP than following discussion family confirming DNR DNI status and the patient's wishes for comfort care only, the CPAP was discontinued and the patient is on room air. Last pulse ox following cessation of respiratory support was 86% there have been no further vital signs obtained. Per request no laboratory analysis or x-rays have been done. The patient is admitted to the hospital for end of life care. Patient History Medical History Major depressive disorder, recurrent, moderate (Acute) Demoralization (Acute) Bilateral lower extremity edema (Acute) Elevated blood pressure (Acute) Urinary tract infection (Acute) Generalized weakness (Acute) Dependent edema (Acute) Cellulitis of great toe, right (Acute) Knee effusion, right (Acute) Light headedness (Acute) Parkinson disease (Chronic) Surgical History History of knee surgery (Acute) Previous back surgery (Acute) Status post deep brain stimulator placement (Acute) Social History Smoking Status: Never smoker Family & Social History Safety & Behavioral: Feels Safe in Current Yes Environment Tobacco & Substance use: Smoking Status Never smoker Comment: The patient has been living at home with his in a single family home. Patient's parents are , both his father and mother of old age his father at 90 in his mother at 89. He has a sister who has dementia. Smoking: Patient is a nonsmoker Alcohol: Patient does not consume alcohol Substance use: Patient does not use herbal or cannabis products. Advanced directives: Patient has advanced directives indicating that he is DO NOT RESUSCITATE AND DO NOT INTUBATE, comfort measures only. This is confirmed with patient's who is at bedside and is his decision maker. Meds Home Medications Medication Instructions Recorded Confirmed Type pregabalin [Lyrica] 150 mg PO TID #0 07/19/12 12/26/18 History fentanyl 1 patch TOPICAL Q72H #0 08/28/16 12/26/18 History folic acid 0.4 mg PO 1300 #0 08/28/16 12/26/18 History cholecalciferol (vitamin D3) 2,000 unit PO 1300 #0 10/24/17 12/26/18 History [Vitamin D3] naloxegol [Movantik] 25 mg PO 0900 #0 10/24/17 12/26/18 History nystatin 1 mis TOPICAL BID #0 10/24/17 12/26/18 History potassium chloride 20 meq PO 0900 #0 10/24/17 12/26/18 History magnesium 250 mg tablet 250 mg PO QID tab 04/29/18 12/26/18 History melatonin 5 mg tablet 5 mg PO 2100 04/29/18 12/26/18 History omeprazole 20 mg capsule,delayed 20 mg PO BID cap 04/29/18 12/26/18 History release oxycodone 10 mg tablet 10 mg PO Q4-6H PRN 04/29/18 12/26/18 History pramipexole ER 0.75 mg 0.75 mg PO TID 21 Days #84 tab 04/29/18 12/26/18 History tablet,extended release 24 hr ranitidine 150 mg tablet 150 mg PO BID tab 04/29/18 12/26/18 History rivastigmine 6 mg capsule 6 mg PO BID 04/29/18 12/26/18 History carbidopa-levodopa [Rytary] 2 cap PO BID 09/17/18 12/26/18 History carbidopa-levodopa [Rytary] 3 cap PO BID 09/17/18 12/26/18 History cyanocobalamin (vitamin B-12) 1,000 mcg PO 1300 09/17/18 12/26/18 History [Vitamin B-12] furosemide [Lasix] 40 mg PO 0900 09/17/18 12/26/18 History venlafaxine ER 75 mg 225 mg PO 0900 #90 tab 02/11/19 Rx tablet,extended release 24 hr buspirone 5 mg tablet 5 mg PO TID #90 tab 03/18/19 Rx amitriptyline 75 mg tablet 150 mg PO BEDTIME #60 tab 04/02/19 Rx Allergies Allergy/AdvReac Type Severity Reaction Status Date / Time adhesive [ADHESIVE] Allergy Severe BLISTERS Verified 10/31/18 13:05 chlorhexidine [CHLORHEXIDINE] Allergy Severe RASH Verified 10/31/18 13:05 latex [LATEX] Allergy Severe BLISTERS Verified 10/31/18 13:05 rubber Allergy Mild SKIN RED Uncoded 10/31/18 13:05 vinyl Allergy Unknown PT DENIES Uncoded 10/31/18 13:05 antiseptic soap AdvReac Mild SKIN RED Uncoded 10/31/18 13:05 AND IRRITATED Review of Systems Review of Systems All systems reviewed & are unremarkable except as noted in HPI and below and unobtainable due to mental condition (Patient is nonverbal and somnolent) Exam Vital Signs (past 8 hours): - 04/15/19 02:35 04/15/19 02:46 04/15/19 03:02 Temperature 97.6 F Pulse Rate 86 87 81 Respiratory Rate 20 28 H Blood Pressure 152/78 H Blood Pressure [Right Arm] 121/74 Pulse Oximetry 92 88 L 04/15/19 03:14 Temperature 97.6 F Pulse Rate 81 Respiratory Rate 28 H Blood Pressure 152/78 H Blood Pressure [Right Arm] Pulse Oximetry 88 L Fraction of Inspired Oxygen 100 Oxygen Delivery Method Room Air Narrative Exam Narrative: GENERAL APPEARANCE: well developed, obese male in moderate respiratory distress. HEAD: Normocephalic, atraumatic. EYES: pupils equal, round, reactive to light and accommodation, sclera non-icteric. NOSE: no rhinorrhea ORAL CAVITY: Dry mucous membranes, tongue in midline. THROAT: Unable to visualize. NECK/THYROID: Nontender to palpation, no JVD noted, trachea midline. LYMPH NODES: no cervical or supraclavicular lymphadenopathy. SKIN: warm and dry, no suspicious lesions HEART: regular rate and rhythm, S1-S2, no murmur, rubs or gallops, brisk capillary refill, generalized trace edema LUNGS: Coarse breath sounds throughout, no wheezing, no cough effort. CHEST: Symmetrical movement, no accessory muscle use. ABDOMEN: Firm, distended, obese, nontender to palpation, no organomegaly however exam limited by body habitus, hypoactive bowel tones, Delarosa catheter with leg bag left leg. EXTREMITIES: No deformities, strength is 3/5 bilaterally. NEUROLOGIC: Patient opens eyes to verbal stimulus, inconsistently cooperative with commands, hearing grossly normal to speech. PSYCH: Unable to assess psychiatric status due to somnolence. Assessment & Plan Assessment & Plan narrative: The patient has end-stage Parkinson's disease with chronic pain and major depression who was found in acute respiratory failure with hypoxemia and brought to the hospital by EMS with CPAP which was discontinued. Patient is DNR/DNI and is to be comfort measures only. Plan of care is reviewed with the patient and his and he agrees to no lab tests, exam is or interventions. Following evaluation in the ER prior to transfer to the floor the patient indicated he wanted to go home then again agreed to stay. Upon arrival to the floor patient again indicated to start ago home. Reviewed plan of care with the patient and his who both agree to the patient remaining with plans for hospice evaluation. 1. Acute respiratory failure with hypoxia, present on admission. -reportedly pulse ox in the low 80s upon arrival of EMS. Course wet breath sounds, patient started on CPAP. -patient improved to CPAP but refuses treatment, CPAP discontinued, last pulse ox obtained 86%. -patient and family refusing further treatment interventions or medications, request comfort care only. 2. Chronic diastolic congestive heart failure, present on admission. -patient with coarse breath sounds in all paulino, unable to auscultate crackles, trace pedal edema. -last echocardiogram was 11/11/2017 demonstrating diastolic heart failure with preserved ejection fraction with an EF of 60-65% -patient has been on Lasix 40 mg daily which is now pain refused. 3. Parkinson's disease, chronic, active -patient with progressive Parkinson's symptoms, increased weakness, dysphagia, fatigue, tremors and neuropathy. -status post deep brain stimulator, parkinsonian meds are held this time, per family request. -lorazepam 0.5 mg IV every 2 hours as needed. 4. Chronic pain, active. -continue home regimen of 50 mcg fentanyl patch. -patient is also been taking oxycodone 10 mg every 4-6 hours, due to somnolence will change to hydromorphone 1 mg IV as needed for pain. 4. Major Depression, chronic, active. -patient is been under the care of Dr. Stroud with adjustment of psychotropic medications. -unable to assess mental status at this time due to somnolence. 5. Comfort care -family is requesting end of life care following the patient being found unresponsive. -no lab testing or imaging, no vital signs. -will continue fentanyl patch and hydromorphone 1 mg every 3 hours as needed for pain. -lorazepam 0.5 mg every 2 hours as needed for agitation or restlessness. -Atropine 1%, 2 drops every 2 hours as needed for secretions. -patient's end-stage Parkinson's with chronic pain and major depression, discussed with the family who agree to hospice evaluation plan to return home as patient wishes. Patient is admitted at this time for end of life care. Patient will be observation status with expected length of stay to be less than 2 midnights. Scores [facility] [place] coma scale eye opening: To sound [place] coma scale verbal response: Orientated (Nods yes/no appropriately) [place] coma scale motor response: Obey commands [place] coma scale total score: 14
[2019-04-15 04:26] VITALS: BMI 41.0
[2019-04-15] MEDS: HYDROMORPHONE 1 MG INJ IV (04:53)
[2019-04-15] MEDS: LORazepam 2 MG/ML INJ 0.5 MG IV (05:11)
--- NOTE | 2019-04-15 11:01 | PM.PN.1 ---
Subjective Date Patient Seen: 04/15/19 Exam Vital Signs (past 8 hours): - 04/15/19 03:02 04/15/19 03:14 Temperature 97.6 F Pulse Rate 81 81 Respiratory Rate 28 H 28 H Blood Pressure 152/78 H Blood Pressure [Right Arm] 121/74 Pulse Oximetry 88 L 88 L Fraction of Inspired Oxygen 100 Oxygen Delivery Method Room Air Assessment & Plan Assessment & Plan narrative: Brief progress note: The patient was seen and examined. The patient is mildly somnolent but responsive. He denies pain, nausea, or any discomfort. Physical exam is unchanged other than the patient is no longer in respiratory distress and appears comfortable. Agree with admitting providers assessment and plan. Discontinued IV medications including Dilaudid and lorazepam. Ordered comfort care medications including: Morphine concentrate 10 mg every 2 hours as needed for pain, lorazepam 0.5 mg every 4 hours as needed for anxiety/agitation, scopolamine patch every 3 days as needed for secretions, and atropine gtt every 2 hours as needed for secretions. Arranging for hospice informational visit and the patient is likely to discharge home potentially tomorrow with increased caregiving and hospice to open. Quality VTE Deep Vein Thrombosis/Pulmonary Embolism Present on Admission: No
[2019-04-15] MEDS: MORPHINE 10 MG/0.5 ML ORAL SYRINGE PO (12:17)
[2019-04-15] MEDS: RYTARY 2 EACH PO (12:22)
[2019-04-15] MEDS: CARBIDOPA-LEVODOPA 25/100 TABLET 0.5 EACH PO (12:22)
[2019-04-15] MEDS: PRAMIPEXOLE 0.25 MG TABLET 0.375 MG PO (12:23)
[2019-04-15 12:31] VITALS: BMI 39.4
--- NOTE | 2019-04-15 15:03 | PM.DS.1 ---
History of Present Illness Date Patient Seen: 04/15/19 Chief complaint: Unresponsive Narrative: Written by Nasim CROWELL: Mr. Matthias Vance is a 73-year-old male patient with history significant for Parkinson's disease, major depression, congestive heart failure, hypertension, generalized weakness who presents to the ER with altered mental status and respiratory distress. The patient is nonverbal at baseline and is somnolent therefore much of the information is obtained from the patient's . The patient's reports finding the patient unresponsive and gurgling at 1:00 a.m. when she typically gives him medication. EMS was summoned and the patient is a DNR DNI and paramedics started patient on CPAP. The patient has been living at home with his is primary caregiver and 3 hours of assistance daily. She states the patient has been in deteriorating health for the last month with increasing weakness debility. She states he has been eating and drinking less and coughs when eating or drinking. The patient response to verbal stimulus and nausea says yesterday now and will follow commands to squeeze hands and release. He confirms he has no pain and wishes comfort care only, no lab studies, no interventions. Per his he has had no recent illness fevers or chills only progression of his Parkinson's disease. He has had progressive shortness of breath. He has reported chest pain, no abdominal pain and has had no vomiting. At baseline he has constipation but his head daily soft stools the last week described as mushy. The patient is fully dependent for all activities of daily living. As a family they have been discussing hospice care but no decision had been made. On upon arrival in the ER the patient is on CPAP per EMS and is afebrile with a temperature 97.6?, heart rate of 86, blood pressure 152/78, respirations of 20 saturating 92% on room air. Patient was subsequently transferred over to the ER CPAP than following discussion family confirming DNR DNI status and the patient's wishes for comfort care only, the CPAP was discontinued and the patient is on room air. Last pulse ox following cessation of respiratory support was 86% there have been no further vital signs obtained. Per request no laboratory analysis or x-rays have been done. The patient is admitted to the hospital for end of life care. Discharge Providers Date of admission: 04/15/19 02:52 Discharge Date: 04/15/19 Primary care physician: Darian Alonso MD Consults: 04/15/19 03:25 Consult to Pastoral Services Routine Comment: End of life care 04/15/19 04:26 Consult to Hospice Referral Routine Comment: Comfort care 04/15/19 04:28 Consult to Construction Manager Routine Comment: Major depression, Comfort care, hospice consult 04/15/19 04:44 Consult to Dietitian, Adult Routine Comment: Reason For Exam: skin risk assessment Discharge provider: Gris Weber DO Summary Discharge Diagnosis: 1. End of life care. 2. Acute hypoxemic respiratory failure, possibly secondary to an aspiration event, present on admission. Active. 3. Possibly acute on chronic diastolic congestive heart failure, present on admission. 4. Parkinson's disease status post deep brain stimulator, acute on chronic chronic, present on admission. Stable. 5. Chronic pain with opiate dependence, present on admission. Stable. 6. Major depressive disorder, chronic, present on admission. Stable. Hospital Course: Matthias Vance is a 73-year-old male patient with a past medical history significant for Parkinson's disease status post deep brain stimulator, major depressive disorder, diastolic congestive heart failure, hypertension, and generalized weakness who presents to the ED after being found unresponsive at home and in respiratory distress. 1. End of life care. -The patient and his spouse and AD Jacquie Vance would like the patient to be comfort care only without any further medical intervention. -Ordered comfort care medications including: Morphine concentrate 10 mg every 2 hours as needed for pain, lorazepam 0.5 mg every 4 hours as needed for anxiety/agitation, scopolamine patch every 3 days as needed for secretions, and atropine gtt every 2 hours as needed for secretions. -Arranged for hospice to open tomorrow morning and the patient already has medical equipment that is needed at home. 2. Acute hypoxemic respiratory failure, possibly secondary to an aspiration event, present on admission. Active. -Patient was found unresponsive in the middle of the night by his spouse and was hypoxemic per EMS with SpO2 in low 80s and course wet breath sounds on arrival. -CPAP was implemented and aeration improved but the patient refused treatment, therefore, discontinued. Last SpO2 obtained was 86% on room air. -The patient is comfort care only without any further medical interventions. 3. Possibly acute on chronic diastolic congestive heart failure, present on admission. -Patient presented with coarse breath sounds in all paulino and trace pedal edema. -Last echocardiogram was 11/11/2017 demonstrating diastolic heart failure with preserved ejection fraction with an EF of 60-65% -Implemented comfort medications as above for respiratory distress and discontinued furosemide as patient is comfort care only. 4. Parkinson's disease status post deep brain stimulator, acute on chronic chronic, present on admission. Stable. -Patient has been declining over the last month due to his Parkinson's disease advancing with increased weakness, dysphagia, fatigue, tremors and neuropathy. -Continued Parkinson's medications including: Sinemet, Rytary, rivastigmine and pramipexole but only if patient is awake and able to swallow. -Discontinued all other medications and continued comfort care medications as above. 5. Chronic pain with opiate dependence, present on admission. Stable. -Continued home fentanyl patch 50 mcg every 3 days. -Implemented comfort care medications including morphine as needed for pain as above. 6. Major depressive disorder, chronic, present on admission. Stable. -Patient has been under the care of Dr. Stroud with adjustment of psychotropic medications. -Unable to assess mental status at this time due to somnolence. Status at Discharge Functional status at discharge: bed bound Exam Vital Signs (past 8 hours): Fraction of Inspired Oxygen 100 Oxygen Delivery Method Room Air Narrative Exam Narrative: General: Elderly man lying in bed and in no acute distress, moribund, somnolent and minimally arousable. HEENT: Normocephalic, atraumatic. External ears without defect. Flushed face. Neck: Supple with full range of motion. No jugular venous distension. No bruits. No lymphadenopathy or thyromegaly. Cardiovascular: Regular rate and rhythm without murmurs, rubs, or gallops appreciated. Pulmonary: Coarse breath sounds throughout all lung paulino. Abdomen: Soft, bowel sounds present, nontender, nondistended. No hepatosplenomegaly or masses appreciated. Extremities: No clubbing or cyanosis. Mild bipedal edema. Skin: Normal temperature, turgor, and texture; no rash, ulcers, or subcutaneous nodules appreciated. Discharge Plan Discharge Plan Patient Disposition: Home Discharge comment: He is being discharged home with hospice. You were provided medications for comfort including: Morphine 10 mg under the tongue every 2 hours as needed for signs of pain, discomfort, air hunger, or increased dyskinesias; lorazepam 0.5 mg every 4 hours as needed for signs of anxiety or agitation; scopolamine patch placed on the neck behind his ear every 3 days as needed to decrease secretions; and atropine 2 drops under tongue every 2 hours as needed to decrease secretions. If he awakens and is able to swallow medications you may give him his Parkinson's medications only. You may also continue the fentanyl patch 50 mcg every 3 days. Discharge Med Rec/Prescriptions Prescriptions: New scopolamine base [Transderm-Scop] 1 mg over 3 days Patch 3 Day 1 patch topical Q72H PRN (Reason: Secretions) Qty: 10 RF: 0 atropine 1 % Drops 2 drop sublingual Q2HR PRN (Reason: Secretions) Qty: 15 RF: 0 lorazepam [Lorazepam Intensol] 2 mg/mL Concentrate 0.5 mg PO Q4HR PRN (Reason: Anxiety or agitation) Qty: 30 RF: 0 morphine concentrate 100 mg/5 mL (20 mg/mL) solution 10 mg SL Q2H PRN (Reason: pain, discomfort, air hunger, or dyskinesias) Qty: 15 RF: 0 Continued rivastigmine tartrate 6 mg capsule 6 mg PO BID RF: 0 fentanyl 50 MCG/HR patch 72 hour 1 patch Topical Q72H Qty: 0 RF: 0 pramipexole 0.25 mg tablet 0.75 mg PO TID RF: 0 carbidopa-levodopa 25-100 mg tablet 0.5 tab PO QID RF: 0 carbidopa-levodopa 48.75-195 mg capsule, extended release 2 cap PO QID RF: 0 Discontinued melatonin 5 mg tablet 5 mg PO 2100 RF: 0 ranitidine HCl 150 mg tablet 150 mg PO BID RF: 0 omeprazole 20 mg capsule,delayed release(DR/EC) 20 mg PO BID RF: 0 oxycodone 10 mg tablet 10 mg PO Q4-6H PRN (Reason: Breakthrough Pain) RF: 0 magnesium 250 mg tablet 250 mg PO QID RF: 0 venlafaxine 75 mg tablet extended release 24hr 225 mg PO 0900 Qty: 90 RF: 3 Lyrica 150 MG capsule 150 mg PO TID Qty: 0 RF: 0 folic acid 0.4 MG tablet 0.4 mg PO 1300 Qty: 0 RF: 0 Movantik 25 MG tablet 25 mg PO 0900 Qty: 0 RF: 0 potassium chloride 20 MEQ tablet,ER particles/crystals 20 meq PO 0900 Qty: 0 RF: 0 cholecalciferol (vitamin D3) [Vitamin D3] 2,000 UNIT capsule 2,000 unit PO 1300 Qty: 0 RF: 0 buspirone 5 mg tablet 5 mg PO TID Qty: 90 RF: 1 amitriptyline 75 mg tablet 150 mg PO BEDTIME Qty: 60 RF: 2 levofloxacin 500 mg tablet 500 mg PO [id number] RF: 0 glycopyrrolate 1 mg tablet 1 mg PO 0900 RF: 0 glycopyrrolate 1 mg tablet 0.5 mg PO 2100 RF: 0 cyanocobalamin (vitamin B-12) [Vitamin B-12] 1,000 mcg Tablet Extended Release 1,000 mcg PO 1300 RF: 0 furosemide [Lasix] 40 mg tablet 40 mg PO 0900 RF: 0 Follow up/Referrals: Darian Alonso MD [Primary Care Provider] - Discharge Data Primary Care Provider: Darian Alonso Attending Provider: Nasim Dubon Admit Date/Time: 04/15/19 02:52 Quality VTE Deep Vein Thrombosis/Pulmonary Embolism Present on Admission: No
--- NOTE | 2019-04-15 15:54 | CM.DANOTE ---
DCP/Assessment: Reviewed chart. Patient is a 73yr old male admitted to [facility] under OBS status found unresponsive. Patient with h/o Parkinson's, CHF, depression, and hypertension. PCP is Dr. Alonso. Primary payor is 1)Medicare 2)[facility] [employer] [place]. Received referral from Dr. Weber requesting hospice consult. PSYCH THERAPIST met with patient and family at bedside which included Jacquie Vance. Per spouse, they would like to take patient home today with hospice. Family has no preference in agency choices. Therefore, placed call to [facility] spoke with Asad. She reports that they can see the patient in the residence tomorrow 04-16-19. Clinical faxed. Hospice to obtain consent from spouse at time of intake. Spouse spoke with Asad over the phone. Hospice expected to arrive around 11:00AM tomorrow. Placed call to [facility]. Patient requiring non-urgent BLS transport due to lack of responsiveness and lower extremity weakness. Medical necessity form completed and signed by MD for BLS transport. Patient scheduled to be picked up around 6:00pm. RN updated. Faxed d/c summary to hospice. Family in agreement to take patient home with hospice services starting tomorrow. P: Home today. EGRONIMO Hayward Discharge Planning/Care Management CM Discharge Assessment Start: 04/15/19 15:47 Freq: Status: Active Protocol: Document 04/15/19 15:47 KJS (Rec: 04/15/19 15:54 KJS [id number]) Discharge Planning Assessment Assigned Digital Production Operator GERONIMO Hayward Contact Information Jacquie Vance (spouse) [phone] Advance Directives? Yes: polst History Provided By Family Member Medical Record Prior Living Arrangements House Household Members spouse Type of transporation used prior to Relies on Others admit Independent with ADL's No Is patient alert and oriented? No Needs Assistance With Bathing Eating Grooming Meal Prep Toileting Managing Medications Home Chores / Shopping Caregiver for Another No DME Already Rented / Owned Hospital Bed Wheelchair Barriers to Discharge No Discharge Plan Hospice Referrals Initiated Other Additional Comment Hospice Whiteboard Updated in Patient Room with Yes name and ext. # of Digital Production Operator Review Status In Process Next Review Type Continued Stay Review
--- NOTE | 2019-04-15 17:28 | PC.NURSE ---
shift overview pt sleeping with family at bedside. comfort care measures with total assist repositioning. pt without signs/symptoms of pain/distress with turning. fentanyl patch to right upper arm. pt to [place] home with hospice approx 1800.
== END 2019-04-15 18:07 | disposition home or self-care (01) ==
LOC: ED 02:47 → AC 03:10
PROVIDERS: Admitting Provider Nurse Practitioner Adult Health; Emergency Provider Emergency Medicine; Family Provider Internal Medicine; PCP Internal Medicine; Visit Provider Nurse Practitioner Adult Health
DX: J96.01 Acute respiratory failure with hypoxia (principal); G20 Parkinson's disease; I11.0 Hypertensive heart disease with heart failure; I50.33 Acute on chronic diastolic (congestive) heart failure; G89.29 Other chronic pain; F32.9 Major depressive disorder, single episode, unspecified; Z51.5 Encounter for palliative care; Z66 Do not resuscitate
CPT/HCPCS: 94660; 96374; 96375; 99282; 99285; G0378; J1170; J2060